=== PATIENT | female | born 1955 | race African-American/Black ===

== ENCOUNTER 2020-07-24 16:02 | Emergency (ER) | payer MEDICAID ==
[~2020-07-24] VITALS: Ht 175.3 cm; Wt 115.2 kg
[2020-07-24 16:15] VITALS: BP 143/93
--- NOTE | 2020-07-24 16:15 | NUR ---
ED Nurse Note: Pt walked in to ED c/o lower back pain x2 days. Denies fall/ injury to the area. Pt took Tylenol this AM. AAOx4, verbally responsive. Pt is using a walker for ambulation. On room air, no SOB.
[2020-07-24] MEDS ORDERED: Ketorolac 30mg Inj IM ONE (16:45)
[2020-07-24] MEDS ORDERED: Meclizine 25mg tab ORAL PRN (16:45)
[2020-07-24] MEDS ORDERED: Methocarbamol 750mg tab ORAL ONE (16:45)
--- NOTE | 2020-07-24 17:15 | Emergency Room Report ---
History of Present Illness General Chief Complaint: Back Pain-No Injury Source: Patient Present Illness HPI 65-year-old female with history of chronic degenerative disc disease lower back here complaining of worsening lower back after lifting heavy object yesterday. Denies any urinary symptoms, hematuria. Denies any pain radiation per denies any tingling or numbness. Denies saddle paresthesia. Rates the pain 10 out of 10. Reports that took Tylenol at home with minimal relief. Patient reports that she cannot take ibuprofen as it irritates her throat however cannot take the injection of Toradol. Also complains of chronic history of benign positional vertigo and is requesting meclizine. Denies any fall or injury of head. Denies any dizziness at this time. Denies any nausea or vomiting. Denies chest pain, shortness of breath, no other associate symptoms. Denies taking any blood thinners. 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 COVID-19 Screening: Negative COVID-19 COVID-19 Testing Source: [facility] Patient History Past Medical History: see triage record Past Surgical History: none Pertinent Family History: none Now: No Immunizations: UTD Reviewed Nursing Documentation: PMH: Agreed; PSxH: Agreed Nursing Documentation-PMH Hx Hypertension: Yes Review of Systems All Other Systems: negative except mentioned in HPI Physical Exam Vital Signs Date Time Temp Pulse Resp B/P (MAP) Pulse Ox O2 Delivery O2 Flow Rate FiO2 07/24/20 16:09 98.2 70 18 143/93 (110) 97 Room Air Sp02 EP Interpretation: reviewed, normal General Appearance: no apparent distress, alert, GCS 15, non-toxic Head: normocephalic, atraumatic Eyes: bilateral eye normal inspection, bilateral eye PERRL ENT: hearing grossly normal, normal pharynx, no angioedema, normal voice Neck: full range of motion, supple/symm/no masses Respiratory: chest non-tender, lungs clear, normal breath sounds, speaking full sentences Cardiovascular #1: regular rate, rhythm, no edema Cardiovascular #2: 2+ carotid (R), 2+ carotid (L), 2+ radial (R), 2+ radial (L), 2+ dorsalis pedis (R), 2+ dorsalis pedis (L) Gastrointestinal: normal bowel sounds, non tender, soft, non-distended, no guarding, no rebound Rectal: deferred Genitourinary: no CVA tenderness Musculoskeletal: no calf tenderness, pelvis stable, no lower extremity edema, non-tender Neurologic: alert, motor strength/tone normal, oriented x3, sensory intact, responsive, speech normal Psychiatric: judgement/insight normal, memory normal, mood/affect normal, no suicidal/homicidal ideation Skin: no rash Lymphatic: no adenopathy Medical Decision Making PA Attestation ALL Diagnosis and treatment plan reviewed and discussed with my supervising physician Dr. Howe Diagnostic Impression: Primary Impression: Lumbar strain Additional Impression: Vertigo ER Course 65-year-old female with history of chronic degenerative disc disease lower back here complaining of worsening lower back after lifting heavy object yesterday. Denies any urinary symptoms, hematuria. Denies any pain radiation per denies any tingling or numbness. Denies saddle paresthesia. Rates the pain 10 out of 10. Reports that took Tylenol at home with minimal relief. Patient reports that she cannot take ibuprofen as it irritates her throat however cannot take the injection of Toradol. Also complains of chronic history of benign positional vertigo and is requesting meclizine. Denies any fall or injury of head. Denies any dizziness at this time. Denies any nausea or vomiting. Denies chest pain, shortness of breath, no other associate symptoms. Denies taking any blood thinners. Ddx considered but are not limited to: Lumbar spine sprain, strain, fracture, c ontusion, neuropathy Vital signs: are WNL, pt. is afebrile H&PE are most consistent with: Lumbar strain, benign positional vertigo ORDERS: No imaging at this time patient no fall or injure herself with his chronic pain worsening. Robaxin, lidocaine patch, meclizine ER intervention: Toradol IM, Robaxin, meclizine DISCHARGE: At this time pt. is stable for d/c to home. Will provide printed patient care instructions, and any necessary prescriptions. Care plan and follow up instructions have been discussed with the patient prior to discharge. Patient take medication as directed, follow primary care provider pain management, worsening symptoms return to the emergency room also address vertigo to primary care doctor is reports that she has had it for many years however has not yet been followed up with neurologist or ENT. Last Vital Signs Date Time Temp Pulse Resp B/P (MAP) Pulse Ox O2 Delivery O2 Flow Rate FiO2 07/24/20 16:15 98.2 70 18 143/93 97 Room Air Disposition: HOME, SELF-CARE Condition: Stable Scripts Meclizine Hcl* (MECLIZINE*) 25 Mg Tablet 25 MG ORAL THREE TIMES A DAY, #21 TAB Prov: Robbin Lubin 07/24/20 Lidocaine Patch* (Lidoderm Patch*) 1 Each Adh..patch 1 PATCH TOPIC DAILY, #30 PATCH Patch(es) may remain in place for up to 12 hours in any 24-hour period. Prov: Robbin Lubin 07/24/20 Methocarbamol* (ROBAXIN-500*) 500 Mg Tablet 500 MG ORAL TID PRN for For Pain, #15 TAB 0 Refills Prov: Robbin Lubin 07/24/20 Referrals: [facility]ERR[facility] (PCP) Patient Instructions: Lumbosacral Strain, Vertigo, [id number] Additional Instructions: Take medication as directed, follow with your primary care provider, worsening symptoms return to the emergency room Robbin Lubin Jul 24, 2020 17:15
[2020-07-24] MEDS ORDERED: ROBAXIN-500MG ORAL (17:16)
[2020-07-24] MEDS ORDERED: LIDODERM700 M1 TOPIC (17:16)
[2020-07-24] MEDS ORDERED: MECLIZINE HCL25 MG ORAL (17:16)
[2020-07-24 18:00] VITALS: BP 132/75
--- NOTE | 2020-07-24 18:00 | NUR ---
ER DISCHARGE NOTE: Patient is cleared to be discharged per ERMD, pt is aox4, on room air, with stable vital signs. pt was given dc and prescription instructions, pt was able to verbalize understanding, pt id band removed. pt is able to ambulate with steady gait. pt took all belongings.
== END 2020-07-24 18:00 | disposition home or self-care (01) ==
LOC: EMR 16:23
DX: S39.012A Strain of muscle, fascia and tendon of lower back, initial encounter (principal); X50.0XXA Overexertion from strenuous movement or load, initial encounter; Y92.9 Unspecified place or not applicable; R42 Dizziness and giddiness; Z88.6 Allergy status to analgesic agent
CPT/HCPCS: 96372; J1885; Z7502; 99283